=== PATIENT | male | born 1980 | race Caucasian/White ===

== ENCOUNTER → 2020-10-21 14:46 | Outpatient (CLI) | payer BC, SELFPAY ==
--- NOTE | 2020-10-21 14:51 | DI.US.S_ITS ---
PROCEDURE: US THYROID INDICATIONS: Nontoxic goiter, unspecified TECHNIQUE: Real-time scanning was performed of the thyroid gland, with image documentation. COMPARISON: None. FINDINGS: Right: Thyroid lobe measures 6.3 x 2.9 x 2.4 cm, and is diffusely heterogeneous in echotexture. Left: Thyroid lobe measures 5.7 x 2.3 x 2.0 cm, and is diffusely heterogeneous in echotexture. Isthmus: 1.2 mm thick. Nodule number: 1 Location: Isthmus Size: 0.9 x 0.7 x 0.5 cm. Composition: Solid Echogenicity: Hypoechoic Shape: wider than tall. Margins: Smooth Echogenic foci: None Total points: 4 ACR TI-RADS category: Moderately suspicious IMPRESSION: Diffusely enlarged and heterogeneous thyroid as well as a subcentimeter isthmus nodule. Given the small size, no follow-up is warranted. ACR TI-RADS definitions and recommendations: TI-RADS 1 (benign): 0 points. FNA not needed. TI-RADS 2 (not suspicious): 2 points. FNA not needed. TI-RADS 3 (mildly suspicious): 3 points. * FNA if 2.5 cm or larger, follow up if 1.5 cm or larger (at 1, 3, and 5 years). TI-RADS 4 (moderately suspicious): 4-6 points. * FNA if 1.5 cm or larger, follow up if 1 cm or larger (at 1, 2, 3, and 5 years). TI-RADS 5 (highly suspicious): 7 points or more. * FNA if 1 cm or larger, follow up if 0.5 cm or larger (every year for 5 years). Dictated by: Oswaldo Karimi [facility] Interpreted: Tariq Allan MD on 10/21/2020 at 16:01 Approved by: Tariq Allan M.D. on 10/21/2020 at 16:26
== END ==
PROVIDERS: PCP Registered Nurse; Referring Provider Otolaryngology; Visit Provider Otolaryngology
DX: E04.9 Nontoxic goiter, unspecified (principal)
CPT/HCPCS: 76536

== ENCOUNTER → 2021-06-04 09:59 | Outpatient (CLI) | payer BC, SELFPAY ==
[2021-06-04] MEDS: COVID-19 VACC #3, MRNA(MOD) 50 MCG/0.25 ML VIAL IM (10:05)
== END ==
PROVIDERS: PCP Registered Nurse; Visit Provider Internal Medicine
DX: Z23 Encounter for immunization (principal)
CPT/HCPCS: 0013A; 91301